=== PATIENT | male | born 1950 | race Hispanic/Latino ===

== ENCOUNTER 2020-01-24 05:57 | Day surgery (SDC) | payer OTHER ==
[2020-01-18 12:22] LABS: Absolute Lymphocytes (CBC) 1.3 K/uL (0.7-4.9); Basophils % 1.1 % (0-1.3); Hematocrit 35.4 % (39.6-49.0); Lymphocytes % 23.9 % (15.3-44.8); MPV 8.1 fL (7.6-11.3); RBC Red Blood Cell Count 3.69 M/uL (4.33-5.43)
[2020-01-18 12:26] LABS: Potassium 3.6 mmol/L (3.5-5.1); Protime INR 0.94
--- NOTE | 2020-01-18 13:51 | RAD REPORT ---
EXAM DESCRIPTION: RAD - Chest Pa And Lat (2 Views) - 01/18/2020 1:31 pm CLINICAL HISTORY: preop, pending foot surgical procedure, hypertension COMPARISON: None TECHNIQUE: Frontal and lateral views of the chest were obtained. FINDINGS: The lungs are underinflated. Minimal atelectasis noted. Calcified granuloma is seen. No a cute or worrisome lung parenchymal process. Heart size is normal and central vasculature is within no rmal limits. No pleural effusion or pneumothorax seen. No acute bony finding noted. No aortic abno rmality. IMPRESSION: No acute cardiopulmonary process.
--- NOTE | 2020-01-23 13:02 | PREOPHP ---
Date of Admission: 01/24/2020 History Of Present Illness: This patient presented to my office with a chief complaint of a painful right big toe joint and the second toe on the right foot present for some time worse with activity, i mproved with rest, throbbing in nature, moderate in severity. The patient is changing shoe gear, jessi en [id number] anti-inflammatories all to no avail and requests evaluation. Medical History: Includes hypertension. Medications: Include hydrochlorothiazide 25 mg, losartan 100 mg, tramadol with acetaminophen 37.5/32 5 as needed. Allergies: NKDA. Surgical History: Unremarkable. Social History: Patient denies tobacco, alcohol, or IV drug use. The patient's height is 5 feet 6 i nches, weight is 166 pounds. Physical Examination: General: The patient is healthy, well developed, well nourished, well oriented x3. Vascular: Evaluation reveals dorsalis pedis and posterior tibial pulses to be 4/4 bilaterally. Capi llary refill time is less than 3 seconds. Temperature gradient is within normal limits. There is no claudication or varicosities or signs of DVT. Musculoskeletal: Evaluation reveals semiflexible cavus foot type bilaterally, subtalar joint shows i ncreased varus bilaterally. There is a forefoot supinatus bilaterally. There is a medial eminence o f the first metatarsal head with range of motion to 80 degrees bilateral. Abducted on the right. Th ere is hallux valgus noted bilaterally. Equinus is noted to be 0 degrees bilaterally per goniometer measurement. Digits on both feet are noted to be contracted at the PIPJ rigidly at the second toe an d MPJ right. Muscle knee and ankle assessment are all within normal limits. There is no tenderness on the plantar fascia. There is no subcutaneous soft tissue mass as well bilaterally. Skin: Evalua tion reveals no rash, ulcer, tumor or contracture. Neurologic: Evaluation reveals deep tendon reflexes for the patellar and Achilles to be 5/5 bilatera lly. Vibratory and sharp dull sensation within normal limits. Diagnostic Data: X-ray evaluation of the right foot reveals well mineralized bones. There is a dors iflexion of the first metatarsal on the lateral view. Lesser metatarsals are well aligned. There is a lateral deviation of the hallux and sesamoids with increase in the intermetatarsal angle of 14 deg massiel, hallux abductus angle is 30 degrees. There is a contracture of the second toe dorsally on the met head and contracted at the PIPJ. All second toe right foot. Diagnosis: Hallux valgus, right foot. Hammertoe deformity, second digit, right foot. Pain in the r ight foot and congenital metatarsus primus varus, right foot. The recommended treatment is for a bun ionectomy with first metatarsal osteotomy. The patient has been educated as to the need for this pro cedure, also fusion of the second toe with hammertoe repair and Smart toe implant, it is recommended and tenotomy and capsulotomy of the second MPJ metatarsophalangeal joint on the right foot. The karen ent understands risks, benefits, alternatives of the above-mentioned procedures including, but not li mited to the risk of pain, swelling, numbness, stiffness, infection, nonhealing of skin or bone, recu rrence of the deformity and the need for any implanted devices to be removed. Due to the consistent nature of the discomfort and failure of conservative treatment and structural deformity seen on x-ray , the patient elects for surgical management. The patient was fitted for postop shoe. Postop instru ctions were given in the written form as well as emergency phone number. COVID risks were discussed with the patient including the need to continue to wear a face mask, avoid any activities with people outside his chitina of contact and the risk of getting COVID with an increased risk of blood clots an d complications due to illness of the surgery recovery. Lab work has been performed. Patient is mil dly anemic and shows mild decrease in GFR. This will be followed up with the patient's primary care doctor. The patient will be instructed to follow up with his primary care doctor. The patient is sc heduled for surgery at [facility] on January 24, 2020. Medical H and P will be completed by Marilu merino. BRUCE Voice ID: [id number]
--- OUTSIDE RECORDS SUMMARY | 2020-01-24 05:59 | XMS REPORT | Clinical Summary ---
:1950 Author Organization [facility] Address [address] [place] [address] Care Team Providers Name Role Phone Parminder Rankin MD Primary Care Provider [phone] Allergies Not on File Medications Not on file Active Problems Not on file Social History Tobacco Use Types Packs/Day Years Used Date Never Assessed Sex Assigned at Date Recorded Not on file Last Filed Vital Signs Not on file Plan of Treatment Health Maintenance Due Date Last Done Comments COVID-19 VACCINE (#1) 1965 COLONOSCOPY SCREENING 08/15/1999 SHINGLES VACCINES (#1) 08/15/1999 65+ PNEUMOCOCCAL VACCINE (1 of 1 - PPSV23) 2014 INFLUENZA VACCINE 09/08/2019 Results Not on fileafter 01/23/2019 Insurance Payer Benefit Plan / Subscriber ID Effective Phone Address T ype Group Dates MEDICARE MEDICARE PART [id number] 2014-Prese [place], T X Medicare A AND B nt BANKERS LIFE BANKERS LIFE [id number] 2016-Prese Commercial AND CASUALTY AND CASUALTY nt Advance Directives For more information, please contact: [phone] Type Date Recorded 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
[2020-01-24] MEDS ORDERED: Ringers Lactate 1,000 ML IV ONE (06:29)
[2020-01-24] MEDS ORDERED: CEFAZOLIN/SWI 1gm 1 GM/10 ML SYR ONE (06:29)
[2020-01-24] MEDS ORDERED: LIDOCAINE 1% MPF 5 ML VIAL ONE (07:19)
[2020-01-24] MEDS ORDERED: propofoL 200 MG/20 ML VIAL IV ONE (07:19)
[2020-01-24] MEDS ORDERED: FENTANYL CITR 100 MCG/2 ML ONE ×2 (07:19→08:58)
[2020-01-24] MEDS ORDERED: LIDOCAINE 1% MPF 30 ML VIAL ONE (07:23)
[2020-01-24] MEDS ORDERED: KETOROLAC 30 MG/ML INJ ONE (07:54)
[2020-01-24] MEDS ORDERED: ONDANSETRON 4 MG/2 ML VIAL ONE (07:54)
[2020-01-24] MEDS ORDERED: EPHEDRINE SULF 50 MG/ML VIAL ONE (08:10)
[2020-01-24] MEDS ORDERED: NS 0.9% VIAL 10 ML ONE (08:11)
[2020-01-24] MEDS ORDERED: MORPHINE 4 MG/ML SYR ONE (10:05)
--- NOTE | 2020-01-24 10:57 | OP ---
Date of Procedure: 01/24/2020 Surgeon: Stevo Peñaloza DPM Preoperative Diagnoses: 1.Hallux valgus deformity, right foot. 2.Hammertoe deformity, second digit, right foot. 3.Contracted joint, second metatarsophalangeal joint, right foot. Postoperative Diagnoses: 1.Hallux valgus deformity, right foot. 2.Hammertoe deformity, second digit, right foot. 3.Contracted joint, second metatarsophalangeal joint, right foot. Procedure: 1.Bunionectomy with first metatarsal distal osteotomy with SonicPin fixation. 2.Fusion second toe proximal interphalangeal joint with Smart Toe implant 19 mm, 10 degree angled, r ight foot. 3.Tenotomy and capsulotomy, second metatarsophalangeal joint, right foot. Anesthesia: General. Procedure In Detail: The patient was brought into the operating room, placed on the operating table in supine position and general anesthesia was induced. The patient was prepped and draped in usual s terile manner. The right extremity was elevated to 60 degrees. An Esmarch bandage was applied. Pne umatic ankle tourniquet was elevated to 250 mmHg and the Esmarch was removed. Procedure #1: Attention was then directed to the first MPJ of the right foot where a 5 cm dorsal deanne ear incision was made overlying the first MPJ. This incision was deepened via sharp and blunt dissec tion down to the level of the joint capsule. All neurologic structures were avoided and all bleeders were clamped and bovied. An inverted L incision was made in the capsule of the first MPJ and dissec ramiro free from its bony attachments. The medial eminence was poured into view and resected utilizing an oscillating saw on the first metatarsal. The first interspace was then approached. A lateral cap sulotomy, extensor digitorum brevis tenotomy was performed and adductor tenotomy was performed. The toe seemed to be moving in more rectus fashion. The foot was then repositioned with the knee bent an d an osteotomy was created in the head of the first metatarsal with the apex distally and arms proxim al in a slight plantarflexory attitude. The capital fragment was then shifted laterally and impacted medially upon the shaft of the first metatarsal. The remaining eminence was removed. Utilizing Son icPin, wire was driven fixating the capital fragment upon the shaft. The cannulated drill was used a nd then the SonicPin was implanted after the wire was removed and the pedal was depressed and held fo r the appropriate time until the process was complete. The capital fragment was stable upon the shaf t with compression. The rough edges were smoothed on the medial aspect utilizing a bur. Area was fl ushed with copious amounts of sterile saline. Medial capsulorrhaphy was then performed utilizing a 1 5 blade with the toe in the corrected position. The capsular tissue was then reapproximated utilizin g 2-0 Vicryl suture with the toe held in a plantarflexory abducted position slightly. Upon simulated weightbearing, there was good rectus alignment, but there was still some contractures of the extenso r tendon which tracked medially and held in place with suture with two 2-0 Vicryl sutures. Again wit h simulated weightbearing, there was good rectus alignment. Area was flushed with copious amounts of sterile saline and skin was closed utilizing 4-0 Vicryl suture. Procedure #2: The second toe was then approached to semielliptical converging incisions were made ut ilizing a 15 blade, 1.5 cm in length. The tenotomy was performed with a 15 blade on the PIPJ at the extensor tendon. This was reflected proximally to the MPJ. The head of the proximal phalanx was bro ught into view and the articular cartilage was resected utilizing oscillating saw. The base of the m iddle phalanx was exposed and the cartilaginous surface was removed utilizing the oscillating saw. B oth bone cuts were seen to be parallel with good alignment on simulated fixation. The proximal phala nx was slightly dorsiflexed still after fixation with a 19 mm 10 degrees angle pin. The proper techn ique with drilling, broaching, and application of the pin was performed with good bony alignment. Th e extensor tendon was reapproximated after flushed with sterile saline utilizing 3-0 Vicryl suture. Skin was reapproximated utilizing 4-0 Prolene suturing. Procedure #3: The second MTPJ was then approached. A stab incision was made just medial to the MPJ and utilizing blunt dissection. Tendons were and the extensor tenotomy was performed and a dorsal capsulotomy was performed. The proximal phalanx structure that was seen to be in good rectus alignment and the joint seemed to align in a better position, although slightly dorsiflexed contract ure still, but minimal compared to prior. This area was flushed with copious amounts of sterile sali ne and a horizontal mattress suture was applied with 4-0 Prolene. The foot was then dressed with Ada ptic, dry sterile gauze, Betadine to the second toe on the gauze, Josie, Kerlix, and an Amrit bandage. Pneumatic ankle tourniquet was deflated and capillary return was seen to be instantaneous to all dig its. The patient was sent to recovery in satisfactory condition. CATALINO/NEO Voice ID: [id number] Report ID: [id number]
--- NOTE | 2020-01-24 10:57 | DS ---
Date Of Surgery: 01/24/2020. Surgeon: Stevo Peñaloza DPM. Preoperative Diagnoses: 1.Hallux valgus deformity, right foot. 2.Hammertoe deformity, second digit, right foot. 3.Contracture second metatarsophalangeal joint, right foot. Procedure: 1.Bunionectomy with first metatarsal distal osteotomy with SonicPin fixation. 2.Fusion second toe with 19 mm, 10 degree angled Smart Toe implant. 3.Tenotomy capsulotomy second metatarsophalangeal joint. Hospital Course: The patient tolerated the procedure and anesthesia well. The patient was injected with 11 cc of 0.5% Marcaine plain postoperatively for anesthesia. The patient will be seen in off ice for postoperative care in 1 week. The patient was given written postop instructions as well as e mergency phone number and medication for pain. BRUCE Voice ID: [id number] Report ID: [id number]
--- NOTE | 2020-01-24 10:57 | RAD REPORT ---
EXAM DESCRIPTION: RAD - Foot Right 2 View - 01/24/2020 10:52 am CLINICAL HISTORY: post op Pain and swelling COMPARISON: No comparisons FINDINGS: Bunionectomy changes are present. Mild soft tissue swelling is seen medially. Hardware is present spanning the proximal and mid phalanx of the second toe. Moderate posterior and plantar calca howard spur.
[2020-01-24 11:56] VITALS: BP 144/75; TEMP 97.6; O2SAT 98
== END 2020-01-24 11:10 | disposition home or self-care (01) ==
LOC: OR 05:57
PROVIDERS: ATTEND Podiatrist
PROC: 0SGP04Z Fusion of Right Toe Phalangeal Joint with Internal Fixation Device, Open Approach (ICD-10-PCS; 2020-01-24)
PROC: 0SNM0ZZ Release Right Metatarsal-Phalangeal Joint, Open Approach (ICD-10-PCS; 2020-01-24)
PROC: 0LQV0ZZ Repair Right Foot Tendon, Open Approach (ICD-10-PCS; 2020-01-24)
PROC: 0QSN04Z Reposition Right Metatarsal with Internal Fixation Device, Open Approach (ICD-10-PCS; principal; 2020-01-24 07:30)
DX: M20.11 Hallux valgus (acquired), right foot (principal); M20.41 Other hammer toe(s) (acquired), right foot; M24.574 Contracture, right foot; Z20.828 Contact with and (suspected) exposure to other viral communicable diseases; I10 Essential (primary) hypertension
CPT/HCPCS: 93005; 85025; 80048; 36415; 85610; 85730; 71046; 73620; 28296; 28285; 28270; U0002; J2704; J3010 ×2; J0690; J7120; J2405